=== PATIENT | female | born 1960 | race Caucasian/White ===

== ENCOUNTER 2025-10-11 10:00 | Emergency (ER) | payer OTHER ==
[~2025-10-11] VITALS: Ht 157.5 cm; Wt 102.8 kg
[2025-10-11 10:04] VITALS: TEMP 97.8
--- NOTE | 2025-10-11 10:20 | ELECTROCARDIOGRAPH REPORT ---
[facility] Test Date: 2025-10-11 Test Time: 10:18:29 Pat Name: DORY SCHULTE Department: PSYCHIATRIC-ER Room: Gender: F Paint Booth Operator: : [id number] Requested By: MASSIEL PEREZ Order Number: [id number] Reading MD: Dr. Suman Hernandez Measurements Intervals [place] Rate: 73 P: 38 GA: 177 QRS: -8 QRSD: 95 T: 52 QT: 384 QTc: 424 Interpretive Statements Sinus rhythm Low voltage, precordial leads RSR' in V1 or V2, right VCD or RVH Electronically Signed On 10-11-2025 19:05:[address] Suman Hernandez Please click the below link to view image of tracing.
[2025-10-11 10:43] LABS: MEAN PLATELET VOLUME 8.5 FL (7.4-10.4); RED CELL DISTRIBUTION WIDTH 15.7 % (11.5-14.5)
--- NOTE | 2025-10-11 10:50 | RADIOLOGY REPORT ---
CHEST RADIOGRAPH REASON FOR EXAM: Chest pain COMPARISON: None TECHNIQUE: One view of the chest is provided FINDINGS: The cardiomediastinal silhouette is within normal limits for technique. There is no focal airspace disease. There is no significant pleural effusion. No acute bony abnormality is identified. IMPRESSION: No radiographic evidence of acute cardiopulmonary process.
[2025-10-11 10:58] LABS: CREATININE 1.10 MG/DL (0.40-0.90); PRO BRAIN NATRIURETIC PEPTIDE 136 PG/ML (0-125); TOTAL CARBON DIOXIDE 25.4 MMOL/L (24-32); eCRCL 42 ML/MIN; eGFR 50 ML/MIN
--- NOTE | 2025-10-11 12:03 | Physician Documentation ---
History of Present Illness ~ Chief Complaint: Mechanical Fall Stated Complaint: FALL/HEAD STRIKE/NO LOC/NO THINNERS Time Seen by MD: 10:27 OK to notify your PCP?: Yes Primary Medical Doctor: sierra argueta Mode of Arrival: POV [facility] 64-year-old female patient came to the emergency room by private vehicle after slipped and fell ground level and hit the back of the head. Not on anticoagulants or antiplatelets. No loss of consciousness. No pre fall symptomatology. Tetanus within 5 Years?: Yes Medication Reconciliation Allergies: Coded Allergies: No Known Allergies (Unverified , 10/11/25) Review of Systems ROS As stated above in the HPI, otherwise all systems are reviewed and negative. Physical Exam Vital Signs: Temperature: 97.8, Source: Oral, Heart Rate: 72, Respiratory Rate: 16, BP: 116/59, Pulse Oximetry: 95, Weight: 102.800 Oxygen Flow Rate: 0 Physical Exam Reviewed vital signs and they are well within normal range. Const: Not in acute cardiopulmonary distress Head: A hematoma at the back of the head little bit to the left side of the center with no laceration. Eyes: Normal Conjunctiva, CORNELIO EOMI ENT: Normal External Ears, Nose and Mouth. Moist mucous membrane Neck: Full range of motion. No meningismus Resp: Clear to auscultation bilaterally. Normal work of breathing Cardio: Regular rate and rhythm, no murmurs. Skin well perfused Abd: Soft, non-tender, non-distended. Normal bowel sounds. No rebound or guarding Skin: No petechiae or rashes. Warm and dry Back: No midline or flank tenderness Ext: No cyanosis, or edema Neuro: Awake and alert GCS 15/15 and no focal neurological deficit Psych: Normal Mood and Affect Progress Results/Orders Results/Orders Orders - MASSIEL PEREZ MD Chest,Single View (10/11/25 10:11) Monitor (10/11/25 10:11) Saline Lock (10/11/25 10:11) Oxygen (10/11/25 10:11) Hs Troponin I W Calculations (10/11/25 12:11) Hs Troponin I W Calculations (10/11/25 13:11) Ct Head (10/11/25 11:33) Completed Orders - MASSIEL PEREZ MD Chest,Single View (10/11/25 10:11) Cbc/Diff (10/11/25 10:11) BMP (10/11/25 10:11) PBNP (10/11/25 10:11) Electrocardiogram (10/11/25 10:11) Hs Troponin I W Calculations (10/11/25 10:11) Vital Signs 10/11/25 10/11/25 10/11/25 10/11/25 10:04 10:41 10:45 11:16 Temp 97.8 Pulse 86 69 72 Resp 18 18 16 B/P (MAP) 71/54 122/100 (107) 116/59 (78) Pulse Ox 95 97 95 O2 Flow Rate 0 0 0 Laboratory Tests Test 10/11/25 10:26 White Blood Count 7.3 Red Blood Count 4.75 Hemoglobin 12.7 Hematocrit 38.7 Mean Corpuscular Volume 81.5 Mean Corpuscular Hemoglobin 26.7 L Mean Corpuscular Hemoglobin Concent 32.7 L Red Cell Distribution Width 15.7 H Platelet Count 293 Mean Platelet Volume 8.5 Neutrophils (%) (Auto) 77.2 H Lymphocytes (%) (Auto) 12.7 L Monocytes (%) (Auto) 6.3 Eosinophils (%) (Auto) 3.2 Basophils (%) (Auto) 0.6 Neutrophils # (Auto) 5.7 Lymphocytes # (Auto) 0.9 L Monocytes # (Auto) 0.5 Eosinophils # (Auto) 0.2 Basophils # (Auto) 0.0 CBC Comment Sodium Level 145 Potassium Level 4.3 Chloride Level 110 H Carbon Dioxide Level 25.4 Anion Gap 10 Blood Urea Nitrogen 15 Creatinine 1.10 H Estimated GFR/1.73 m2 50 BUN/Creatinine Ratio 13.6 Glucose Level 107 H Calcium Level 8.7 Troponin I High Sensitivity 6 Pro-B-Type Natriuretic Peptide 136 H Albumin 3.1 L Chemistry Comments Medical Decision Making Additional information obtaine: old records, family Findings During the physical examination, the findings suggestive of acute life- threatening condition such as JVD, tracheal deviation, acidotic breathing, noisy stridorous breath sounds, pulses paradoxus, muffled heart sounds, unequal breath sounds, abdominal rigidity and rebound tenderness, focal neurological deficits, cool clammy skin, severe hypotension, severe tachycardia or bradycardia are absent. ED MD interpretation of EKG done at 10:18 hours shows sinus rhythm at a rate of 73. Left axis deviation. Normal intervals. No ischemic changes. CBC, BNP and troponins are well within normal range. Chest x-ray is unremarkable. CT of the head is negative for midline shift, intracranial hemorrhage, space occupying lesion. Patient does not have identifiable emergent medical condition that [facility]. The patient is deemed safe for discharge with outpatient follow up. DISCLAIMER Inadvertent spelling and grammatical errors,inadvertent grader tender errors,syntax errors, grammatical errors, and spelling errors are likely due to EMR/dictation software use and do not reflect on the overall quality of patient care. Note that the electronic time recorded on this note does not necessarily reflect the actual time of the patient encounter. Differential Dx:Considerations: Include: Closed head injury, Hematoma(s), Encephalopathy Departure Disposition: 01 HOME / SELF CARE / HOMELESS Impression: Primary Impression: Closed head injury Additional Impression: Concussion Condition: Stable Discharge Instructions: Concussion, Adult, [id number], Contusion, Fall Prevention in the Home, Adult, [id number] Additional Instructions: Thank you for coming to our Emergency Department today. Icing to the head for 48 hours. Please ask your nurse or provider if you have questions about your care today and do not leave until all your questions have been answered. Please use any medications given as directed and follow-up with your doctor (or the doctor you were referred to) in the next 1-3 days. Your primary care doctor can help to coordinate outpatient specialty care and provide authorization for specialty referral as needed. If you do not have a primary care doctor you may follow up at a [facility] facility. You may also use motrin and tylenol as needed for fever and/or pain unless instructed otherwise by your provider or nurse. Indications for more urgent follow-up have been discussed, but you may return to the Emergency Department at ANY time for any worrisome or worsening symptoms. [facility] Facilities: County Facilities: [facility]: Main [place] Address:[address] [place], [place] [id number] [facility]: [place] Address:[facility] [place] [address] [facility] Address:[address] [place], [place] [id number] [facility] Address:[address] [place] [id number] Registration Billing Pharmacy Referrals [facility] Address:[address] [place] [address] Referrals: NO PRIMARY CARE PROVIDER (PCP) Education Educated: Patient Educated regarding: diagnosis, treatment, prognosis, need for follow up Signature Scribe Signature: x Attestation: MASSIEL Padilla MD Oct 11, 2025 12:03
--- NOTE | 2025-10-11 12:26 | RADIOLOGY REPORT ---
CLINICAL HISTORY: aloc TECHNIQUE: Helical imaging carried out from skull base to vertex without intravenous contrast. This exam was performed according to our departmental dose optimization program. Up-to-date CT equipment and radiation dose reduction techniques are utilized as appropriate. CTDIVol: 59.32 mGy DLP: 1030.16 mGy-cm WID: COMPARISON: None FINDINGS: Small posterior left parietal scalp contusion. The ventricles and subarachnoid spaces are normal in size and configuration. There is no midline shift or mass effect. The [place] white matter interfaces are maintained. The basal cisterns are patent. There is no evidence of acute intracranial hemorrhage or extra-axial fluid collection. The mastoid air cells aerated. There is paranasal sinus mucosal thickening IMPRESSION: 1. No acute intracranial abnormality. 2. Small posterior left parietal scalp contusion.
[2025-10-11 12:43] VITALS: BP 122/79; PULSE 64; RESP 16; O2SAT 96
== END 2025-10-11 12:44 | disposition home or self-care (01) ==
LOC: ER 10:01
DX: S06.0X0A Concussion without loss of consciousness, initial encounter (principal); R06.02 Shortness of breath; W01.198A Fall on same level from slipping, tripping and stumbling with subsequent striking against other object, initial encounter; Y93.89 Activity, other specified; Y92.89 Other specified places as the place of occurrence of the external cause; Y99.8 Other external cause status
CPT/HCPCS: 36415; 70450; 71045; 80048; 83880; 84484; 85025; 93005; 99285